=== PATIENT | female | born 1965 | race Caucasian/White ===

== ENCOUNTER 2023-08-01 12:14 | Inpatient (IN) | payer BC ==
--- OUTSIDE RECORDS SUMMARY | 2023-08-01 12:17 | XMS REPORT | Continuity of Care Document ---
Author Name Unknown Address [address] [facility] [place] [address] [facility] thconnect Address [address] [facility] [place] [address] Care Team Providers Care Air And Water Filler Name Role Phone DENIZ SUAZO Attending Clinician Unavailable SUE HYMAN Attending Clinician Unavailable SMITH FOWLER Attending Clinician Unavailable [id number] Attending Clinician Unavailable Payers Payer Name Policy Type Policy Number Effective Date Expirati on Date Source BCBS 2 [id number] 2022 00:00:00 Problems Condition Name Condition Details Condition Category Status Onset Date Resolution Date Last Treatment Date Treating Clinician Comments Source Insomnia Insomnia Disease Active 05-22 00:00: 00 Irma Moscosoybold - Externa l Chronic pain of both knees Chronic pain of both knees Disease Active 05-22 00:00: 00 Irma Moscosoybold - Externa l Primary hypertensi on Primary hypertensi on Disease Active 05-22 00:00: 00 Irma Seybold - Externa l Recurrent major depressive disorder, in partial remission Recurrent major depressive disorder, in partial remission Disease Active 05-22 00:00: 00 Iram Seybold - Externa l Prediabete s Prediabete s Disease Active 05-22 00:00: 00 Irma Seybold - Externa l Social History Social Habit Start Date Stop Date Quantity Comments Source Gender identity Davina Hastings - External Sexual orientation K hattie Hastings - External Alcohol intake 2022-11-06 00:00:00 2022-11-06 00:00:00 Ex-drinker (finding) Irma Hastings - [place] History of Social function 2022-05-22 00:00:00 2022-05-22 00:00:00 Irma Hector Sex Ass[birth year] At 1965 00:00:00 1965 00:[birth year]:00 Irma Hector Smoking Status Start Date Stop Date Source Never smoked tobacco Irma Hector Medications Ordered Medication Name Filled Medication Name Start Date Stop Date Current Medication? Ordering Clinician Indication Dosage Frequency Signature (SIG) Comments Components Source Omeprazole 20 MG oral Delayed Release Capsule 11-06 08:12: 11-06 00:00 :00 No 20mg Take 1 capsule (20 mg total) by mouth daily Irma mcknight Celecoxib (CeleBREX) 200 MG oral Capsule 11-06 00:00: 00 Yes [id number] 200mg Take 1 capsule (200 mg total) by mouth 2 times daily Irma mcknight Pantoprazol e Sodium 40 MG oral Tablet Delayed Response 11-06 00:00: 00 Yes [id number] 40mg Take 1 tablet (40 mg total) by mouth daily Irma mcknight Diethylprop ion HCl CR 75 MG oral TABLET SR 24 HR 11-06 00:00: 00 Yes [id number] 1{tbl} Take 1 tablet by mouth every morning Irma mcknight Magnesium ([employer] Triple Magnesium Complex) 400 MG oral Capsule 11-06 00:00: 00 Yes [id number] 1{tbl} QD Take 1 tablet by mouth daily as needed Irma mcknight Meloxicam 15 MG oral Tablet 11-04 00:00: 00 11-06 00:00 :00 No TAKE 1 TABLET DAILY Irma mcknight Propranolol HCl 10 MG oral Tablet 10-21 00:00: 00 Yes [id number] TAKE 1 TABLET BY MOUTH THREE TIMES A DAY Irma mcknight Diethylprop ion HCl CR 75 MG oral TABLET SR 24 HR -04 00:00: 00 11-06 00:00 :00 No [id number] 1{tbl} Take 1 tablet by mouth every morning Irma mcknight Ozempic, 2 MG/DOSE, subcutaneou s 09-11 00:00: 00 11-06 00:00 :00 No Irma mcknight Omeprazole 20 MG oral Delayed Release Capsule 09-04 12:55: 07 Yes 20mg Take 1 capsule (20 mg total) by mouth daily Irma mcknight Semaglutide -Weight Management (Wegovy) 1.7 MG/0.75ML subcutaneou s Solution Auto-inject or 09-04 00:00: 00 Yes [id number] 1.7mg Inject 1.7 mg into the skin once a week Irma mcknight Semaglutide -Weight Management (Wegovy) 1.7 MG/0.75ML subcutaneou s Solution Auto-inject or 09-04 00:00: 00 Yes [id number] 1.7mg Inject 1.7 mg into the skin once a week Irma mcknight Propranolol HCl 10 MG oral Tablet 09-04 00:00: 00 Yes [id number] 10mg Take 1 tablet (10 mg total) by mouth 3 times daily Irma mcknight Bupropion HCL XL 150 MG OR TB24 08-18 00:00: 00 Yes [id number] 150mg Take 1 tablet (150 mg total) by mouth daily Irma mcknight Trazodone HCl 50 MG oral Tablet 08-18 00:00: 00 Yes [id number] 50mg Take 1 tablet (50 mg total) by mouth nightly Irma mcknight Ondansetron (ZOFRAN) 4 MG oral TABLET DISPERSIBLE 08-18 00:00: 00 Yes [id number] 4mg Q.[id number] 3D Take 1 tablet (4 mg total) by mouth every 8 hours as needed for nausea Irma mcknight Bupropion HCL XL 150 MG OR TB24 08-18 00:00: 00 Yes [id number] 150mg Take 1 tablet (150 mg total) by mouth daily Irma mcknight Trazodone HCl 50 MG oral Tablet 08-18 00:00: 00 Yes [id number] 50mg Take 1 tablet (50 mg total) by mouth nightly Irma mcknight Ondansetron (ZOFRAN) 4 MG oral TABLET DISPERSIBLE 08-18 00:00: 00 Yes [id number] 4mg Q.[id number] 3D Take 1 tablet (4 mg total) by mouth every 8 hours as needed for nausea Irma mcknight OZEMPIC (1 mg/dose) 4 mg/3 mL SQ Solution Pen-Injecto r 08-18 00:00: 00 09-04 00:00 :00 No [id number] 1mg Inject 1 mg into the skin once a week Irma mcknight Semaglutide (1 mg/dose) 2 mg/1.5 mL SQ Solution Pen-Injecto r 07-30 00:00: 00 09-04 00:00 :00 No [id number] 1mg Inject 1 mg into the skin once a week Irma mcknight Omeprazole 20 MG oral Delayed Release Capsule 06-19 10:20: 13 Yes 20mg Take 20 mg by mouth daily Irma mcknight Semaglutide (0.25 or 0.5 mg/dose) 2 mg/1.5 mL SQ Solution Pen-Injecto r 06-19 00:00: 00 Yes [id number] .5mg Inject 0.5 mg into the skin once a week Irma mcknight Bupropion HCL XL 150 MG OR TB24 2- 00:00: 00 Yes [id number] 150mg Take 1 tablet (150 mg total) by mouth daily Irma mcknight Trazodone HCl 50 MG oral Tablet 2- 00:00: 00 Yes [id number] 50mg Take 1 tablet (50 mg total) by mouth nightly Irma mcknight Bupropion HCL SR 100 MG OR TB12 2-03 00:00: 00 06-19 00:00 :00 No [id number] 100mg Take 1 tablet (100 mg total) by mouth daily Irma mcknight Meloxicam 15 MG oral Tablet -18 00:00: 00 Yes 15mg Take 1 tablet (15 mg total) by mouth daily Irma mcknight Meloxicam 15 MG oral Tablet -18 00:00: 00 Yes 15mg Take 1 tablet (15 mg total) by mouth daily Irma mcknight Meloxicam 15 MG oral Tablet 18 00:00: 00 11-04 00:00 :00 No 15mg Take 1 tablet (15 mg total) by mouth daily Irma mcknight Nitrofurant oin Monohyd Macro (Macrobid) 100 MG oral Capsule 05-23 00:00: 00 06-19 00:00 :00 No [id number] 100mg Take 1 capsule (100 mg total) by mouth 2 times daily Irma mcknight Omeprazole 20 MG oral Delayed Release Capsule 05-22 09:55: 45 Yes 20mg Take 20 mg by mouth daily Irma mcknight Semaglutide (0.25 or 0.5 mg/dose) 2 mg/1.5 mL SQ Solution Pen-Injecto r 05-22 00:00: 00 Yes [id number] .25mg Inject 0.25 mg into the skin once a week Irma mcknight Bupropion HCL SR 100 MG OR TB12 -12 00:00: 00 Yes [id number] 100mg Take 1 tablet (100 mg total) by mouth 2 times daily Irma mcknight Trazodone HCl 50 MG oral Tablet 05-22 00:00: 00 Yes [id number] 50mg Take 1 tablet (50 mg total) by mouth nightly Irma mcknight Semaglutide (0.25 or 0.5 mg/dose) 2 mg/1.5 mL SQ Solution Pen-Injecto r 05-22 00:00: 00 06-19 00:00 :00 No [id number] .25mg Inject 0.25 mg into the skin once a week Irma mcknight Lisinopril 40 MG oral Tablet 2021-05 00:00: 00 Yes 40mg Take 1 tablet (40 mg total) by mouth daily Irma mcknight Lisinopril 40 MG oral Tablet 2021-05 00:00: 00 Yes 40mg Take 40 mg by mouth daily Irma mcknight Lisinopril 40 MG oral Tablet 2021-05 00:00: 00 Yes 40mg Take 40 mg by mouth daily Irma mcknight Lisinopril 40 MG oral Tablet 2021-05 00:00: 00 Yes 40mg Take 1 tablet (40 mg total) by mouth daily Irma mcknight Amitriptyli ne HCl 10 MG oral Tablet 2021-05 00:00: 00 05-22 00:00 :00 No QD nightly as needed 1-3 tablets daily Irma mcknight Amlodipine Besylate 10 MG oral Tablet 2021-05 00:00: 00 Yes 10mg Take 1 tablet (10 mg total) by mouth daily Irma mcknight busPIRone HCl 15 MG oral Tablet 2021-05 00:00: 00 Yes 15mg Take 1 tablet (15 mg total) by mouth 4 times daily Irma mcknight Amlodipine Besylate 10 MG oral Tablet 2021-05 00:00: 00 Yes 10mg Take 10 mg by mouth daily Irma mcknight busPIRone HCl 15 MG oral Tablet 2021-05 00:00: 00 Yes 15mg Take 15 mg by mouth 4 times daily Irma mcknight Amlodipine Besylate 10 MG oral Tablet 2021-05 00:00: 00 Yes 10mg Take 10 mg by mouth daily Irma mcknight busPIRone HCl 15 MG oral Tablet 2021-05 00:00: 00 Yes 15mg Take 15 mg by mouth 4 times daily Irma mcknight Amlodipine Besylate 10 MG oral Tablet 2021-05 00:00: 00 Yes 10mg Take 1 tablet (10 mg total) by mouth daily Irma mcknight busPIRone HCl 15 MG oral Tablet 2021-05 00:00: 00 Yes 15mg Take 1 tablet (15 mg total) by mouth 4 times daily Irma mcknight Duloxetine HCl [address] Particles 2021-05 00:00: 00 Yes 60mg Take 1 capsule (60 mg total) by mouth daily Irma mcknight hydroCHLORO thiazide 12.5 MG oral Tablet 2021-05 00:00: 00 Yes 12.5mg Take 1 tablet (12.5 mg total) by mouth daily Irma mcknight Duloxetine HCl [address] Particles 2021-05 00:00: 00 Yes 60mg Take 60 mg by mouth daily Irma mcknight hydroCHLORO thiazide 12.5 MG oral Tablet 2021-05 00:00: 00 Yes 12.5mg Take 12.5 mg by mouth daily Irma mcknight Duloxetine HCl [address] Particles 2021-05 00:00: 00 Yes 60mg Take 60 mg by mouth daily Irma mcknight hydroCHLORO thiazide 12.5 MG oral Tablet 2021-05 00:00: 00 Yes 12.5mg Take 12.5 mg by mouth daily Irma mcknight Duloxetine HCl [address] Particles 2021-05 00:00: 00 Yes 60mg Take 1 capsule (60 mg total) by mouth daily Irma mcknight hydroCHLORO thiazide 12.5 MG oral Tablet 2021-05 00:00: 00 Yes 12.5mg Take 1 tablet (12.5 mg total) by mouth daily Irma mcknight Meloxicam 15 MG oral Tablet 2021-05 0 00:00: 00 Yes 15mg Take 15 mg by mouth daily Irma mcknight Vital Signs Vital Name Observation Time Observation Value Comments S ource Systolic blood pressure 2022-11-06 12:47:00 108 mm[Hg] Irma Seybo ld - External Diastolic blood pressure 2022-11-06 12:47:00 80 mm[Hg] Irma Seybo ld - External Heart rate 2022-11-06 12:47:00 94 /min Kelse y Seybold - External Body temperature 2022-11-06 12:47:00 36.33 Katina Irma Seybold - External Respiratory rate 2022-11-06 12:47:00 14 /min Irma Seybold - External Body height 2022-11-06 12:47:00 165.1 cm Davina ey Seybold - External Body weight 2022-11-06 12:47:00 138.801 kg Davina ey Seybold - External BMI 2022-11-06 12:47:00 50.92 kg/m2 Davina ey Seybold - External Systolic blood pressure 2022-09-04 17:54:00 115 mm[Hg] Irma Seybo ld - External Diastolic blood pressure 2022-09-04 17:54:00 81 mm[Hg] Irma Seybo ld - External Heart rate 2022-09-04 17:54:00 103 /min Kelse y Seybold - External Body temperature 2022-09-04 17:54:00 36.89 Katina Irma Seybold - External Respiratory rate 2022-09-04 17:54:00 14 /min Irma Seybold - External Body height 2022-09-04 17:54:00 165.1 cm Davina ey Seybold - External Body weight 2022-09-04 17:54:00 136.986 kg Davina ey Seybold - External BMI 2022-09-04 17:54:00 50.26 kg/m2 Davina ey Seybold - External Oxygen saturation in Arterial blood by Pulse oximetry 2022-09-04 17:54:00 99 /min Irma Seybo ld - External Systolic blood pressure 2022-06-19 16:17:00 120 mm[Hg] Irma Seybo ld - External Diastolic blood pressure 2022-06-19 16:17:00 80 mm[Hg] Irma Seybo ld - External Heart rate 2022-06-19 16:17:00 110 /min Kelse y Seybold - External Body temperature 2022-06-19 16:17:00 36.28 Katina Irma Seybold - External Respiratory rate 2022-06-19 16:17:00 15 /min Irma Seybold - External Body height 2022-06-19 16:17:00 165.1 cm Davina ey Seybold - External Body weight 2022-06-19 16:17:00 140.161 kg Davina ey Seybold - External BMI 2022-06-19 16:17:00 51.42 kg/m2 Davina ey Seybold - External Systolic blood pressure 2022-05-22 15:49:00 104 mm[Hg] Irma Seybo ld - External Diastolic blood pressure 2022-05-22 15:49:00 70 mm[Hg] Irma Seybo ld - External Heart rate 2022-05-22 15:49:00 124 /min Kelse y Seybold - External Body temperature 2022-05-22 15:49:00 36.28 Katina Irma Seybold - External Respiratory rate 2022-05-22 15:49:00 15 /min Irma Seybold - External Body height 2022-05-22 15:49:00 165.1 cm Davina ey Seybold - External Body weight 2022-05-22 15:49:00 141.522 kg Davina ey Seybold - External BMI 2022-05-22 15:49:00 51.92 kg/m2 Davina ey Seybold - External Encounters Start Date/Time End Date/Time Encounter Type Admission Type Attending [facility] Care Department Encounter ID Source 2023-07-27 00:00:00 2023-07-27 00:00:00 Outpatient DENIZ SUAZO [id number] Irma Hastings 2023-05-31 00:00:00 2023-05-31 00:00:00 Outpatient DENIZ SUAZO [id number] Irma Hastings 2023-05-15 00:00:00 2023-05-15 00:00:00 Outpatient DENIZ SUAZO [id number] Irma Hastings 2023-05-01 00:00:00 2023-05-01 00:00:00 Outpatient HUNDL, DENIZ WOLF [id number] [facility] 2023-04-30 00:00:00 2023-04-30 00:00:00 Outpatient HUNDL, DENIZ WOLF [id number] [facility] 2023-04-22 00:00:00 2023-04-22 00:00:00 [facility] HUNDL, DEN[facility] WOLF [id number] [facility]14 00:00:00 2023-04-14 00:00:00 Outpatient HUNDL, DENIZ WOLF [id number] [facility] 2023-04-13 00:00:00 2023-04-13 00:00:00 Outpatient HUNDL, DENIZ WOLF [id number] [facility] 2023-03-20 00:00:00 2023-03-20 00:00:00 Outpatient HUNDL, DENIZ WOLF [id number] [facility] 2023-03-05 00:00:00 2023-03-05 00:00:00 Outpatient HUNDL, DENIZ WOLF [id number] [facility] 2023-03-03 00:00:00 2023-03-03 00:00:00 Outpatient HUNDL, DENIZ WOLF [id number] [facility] 2023-02-23 00:00:00 2023-02-23 00:00:00 Outpatient HUNDL, DENIZ WOLF [id number] [facility] 2023-02-05 00:00:00 2023-02-05 00:00:00 Outpatient HUNDL, DENIZ WOLF [id number] [facility] 2023-02-04 14:16:02 2023-02-04 14:16:02 Outpatient [facility] [id number] [place] 2023-02-04 00:00:00 2023-02-04 00:00:00 Outpatient HUNDL, DENIZ WOLF [id number] [facility] 2023-02-03 00:00:00 2023-02-03 00:00:00 Outpatient HUNDL, DENIZ WOLF [id number] [facility] 2023-01-23 00:00:00 2023-01-23 00:00:00 Outpatient DENIZ SUAZO IRMA WOLF [id number] [facility] 2023-01-22 13:45:11 2023-01-22 13:45:11 Outpatient SFA SFA [id number] [place] 2023-01-08 14:40:40 2023-01-08 14:40:40 Outpatient SFA SFA [id number] [facility] 2023-01-01 13:15:36 2023-01-01 13:15:36 Outpatient SFA SFA [id number] [facility] 2022-12-30 15:30:00 2022-12-30 15:30:00 Outpatient SUE HYMAN IRMA WOLF [id number] [facility] 2022-12-26 00:00:00 2022-12-26 00:00:00 Outpatient DENIZ SUAZO IRMA WOLF [id number] [facility] 2022-12-18 00:00:00 2022-12-18 00:00:00 Outpatient HUNDRoseline DENIZ WOLF [id number] [facility] 2022-12-17 00:00:00 2022-12-17 00:00:00 Outpatient GABRIELE DENIZ IRMA WOLF [id number] [facility] 2022-12-12 00:00:00 2022-12-12 00:00:00 Outpatient HUNDRoseline DENIZ WOLF [id number] [facility] 2022-12-09 00:00:00 2022-12-09 00:00:00 Outpatient PREZABryan SMITH WOLF [id number] Irma Seybold 2022-12-02 00:00:00 2022-12-02 00:00:00 Outpatient PREZAS SMITH WOLF [id number] Irma Seybold 2022-11-30 00:00:00 2022-11-30 00:00:00 Outpatient HUNDL DENIZ WOLF [id number] Irma Seybold 2022-11-28 00:00:00 2022-11-28 00:00:00 Outpatient HUNDL, DENIZ WOLF [id number] [facility] 2022-11-14 00:00:00 2022-11-14 00:00:00 Outpatient HUNDL, DENIZ WOLF [id number] Irma Seybold 2022-11-12 00:00:00 2022-11-12 00:00:00 Outpatient HUNDL, DENIZ WOLF [id number] [facility] 2022-11-12 00:00:00 2022-11-12 00:00:00 Outpatient HUNDL, DENIZ WOLF [id number] [facility] 2022-11-06 08:00:00 2022-11-06 08:00:00 Outpatient HUNDL, DENIZ WOLF [id number] [facility] 2022-11-02 00:00:00 2022-11-02 00:00:00 Outpatient HUNDL, DENIZ WOLF [id number] [facility] 2022-10-20 00:00:00 2022-10-20 00:00:00 Outpatient HUNDL, DENIZ WOLF [id number] [facility] 2022-09-26 00:00:00 2022-09-26 00:00:00 Outpatient HUNDL, DENIZ WOLF [id number] [facility] 2022-09-16 00:00:00 2022-09-16 00:00:00 Outpatient HUNDL, DENIZ WOLF [id number] [facility] 2022-09-12 00:00:00 2022-09-12 00:00:00 Outpatient HUNDL, DENIZ WOLF [id number] Irma Seybold 2022-09-11 00:00:00 2022-09-11 00:00:00 Outpatient HUNDL, DENIZ WOLF [id number] Irma Seybold 2022-09-04 13:00:00 2022-09-04 13:00:00 Outpatient HUNDL, DENIZ WOLF [id number] Irma Seybold 2022-08-18 00:00:00 2022-08-18 00:00:00 Outpatient HUNDL, DENIZ WOLF [id number] [facility] 2022-08-15 00:00:00 2022-08-15 00:00:00 Outpatient HUNDL, DENIZ WOLF [id number] [facility] 2022-08-14 13:00:00 2022-08-14 13:00:00 Outpatient HUNDL, DENIZ WOLF [id number] [facility] 2022-07-30 00:00:00 2022-07-30 00:00:00 Outpatient HUNDL, DENIZ WOLF [id number] [facility] 2022-07-17 00:00:00 2022-07-17 00:00:00 Outpatient HUNDL, DENIZ WOLF [id number] [facility] 2022-07-16 00:00:00 2022-07-16 00:00:00 Outpatient HUNDL, DENIZ WOLF [id number] [facility] 2022-06-29 00:00:00 2022-06-29 00:00:00 Outpatient HUNDL, DENIZ WOLF [id number] [facility] 2022-06-23 00:00:00 2022-06-23 00:00:00 Outpatient HUNDL, DENIZ WOLF [id number] [facility] 2022-06-23 00:00:00 2022-06-23 00:00:00 Outpatient HUNDL, DENIZ WOLF [id number] [facility] 2022-06-20 00:00:00 2022-06-20 00:00:00 Outpatient HUNDL, DENIZ WOLF [id number] [facility] 2022-06-19 11:15:00 2022-06-19 11:15:00 Outpatient LAB90 IRMA WOLF [id number] [facility] 2022-06-19 10:30:00 2022-06-19 10:30:00 Outpatient HUNDL, DENIZ WOLF [id number] Irma Seyble[facility]ne 2022-06-13 00:00:00 2022-06-13 00:00:00 Outpatient HUNDL, DENIZ WOLF [id number] Irma Hastings 2022-05-27 00:00:00 2022-05-27 00:00:00 Outpatient DENIZ SUAZO [id number] Irma Hastings 2022-05-26 00:00:00 2022-05-26 00:00:00 Outpatient DENIZ SUAZO [id number] Irma Hastings 2022-05-23 00:00:00 2022-05-23 00:00:00 Outpatient DENIZ SUAZO [id number] Irma Hastings 2022-05-23 00:00:00 2022-05-23 00:00:00 Outpatient DENIZ SUAZO [id number] Irma Hastings 2022-05-22 10:45:00 2022-05-22 10:45:00 Outpatient LAB90 IRMA WOLF [id number] Irma Hastings 2022-05-22 10:00:00 2022-05-22 10:00:00 Outpatient DENIZ SUAZO [id number] Irma Hastings Results Test Description Test Time Test Comments Results Result Co mments Source VAG[facility] PATHOGENS DNA [id number] 15:09:59* Test Item Value Reference Range Interpretation Comme nts ZEINAB SPECIES (test code = 77505) NEGATIVE NEGATIVE G. VAGINALIS (test code = 81689) NEGATIVE NEGATIVE T. VAGINALIS (test code = 67601) NEGATIVE NEGATIVE Note: The [facility] VPIII Microbial Identification Testis a DNA probe test intended for use in the detectionand identification of Zeinab species, Gardnerellavaginalis and Trichomonas vaginalis nucleic acid. UNLESS OTHERWISE INDICATED, ALL TESTING PERFORMED AT [facility] [address] [place] [address] CASING IN LINE SETTER: MADI LEE M.D. CLIA NUMBER [id number] [facility] [place]. [id number] PAP TEST, THINPREP, [id number] 14:11:20* Test Item Value Reference Range Interpretation Comme nts SOURCE: (test code = 8001) Cervical SLIDES: (test code = 8011) 1 LMP: (test code = 8021) NOT GIVEN SPECIMEN ADEQUACY: (test code = 20980) (NOTE) Satisfactory for evaluation. Endocervical cells/transformation zone component present. INTERPRETATION: (test code = 44907) NILM/NO EPITH. ABNORMALITY;SEE BELOW --- - NEGATIVE FOR INTRAEPITHELIAL LESION OR MALIGNANCY (NILM) ---- INSPECTION AND TESTING SUPERVISOR : (test code = 8101) ISRRAEL Zhao (ASCP) LOCATION: (test code = 81836) (NOTE) Specimens proces sed and interpreted at [facility], [address] [place] [address], , CLIA: [id number] CPT: (test code = 8140) (NOTE) 37958 UNLESS OTH ERWISE INDICATED, COMPUTER AIDED AND INSPECTION AND TESTING SUPERVISOR SCREENING PERFORMED. The Pap test is a screening test with an inherent, but low probability of error. Your patient should be reminded to consult you immediately if she experiences any suspicious signs or symptoms, regardless of her Pap test result. An alternate report format containing images or consolidated prior Pap history is available as applicable. HPV HIGH RISK WITH GENOTYPE, [id number] 13:47:13* Test Item Value Reference Range Interpretation Comme nts HPV HIGH RISK INTERP (test code = 70756) NEGATIVE NEGATIVE HPV 16 (test code = 00476) NEGATIVE HPV 18 (test code = 16161) NEGATIVE HPV, HR, OTHER GENOTYPES (test code = 43481) NEGATIVE Testing methodol ogy is real-time PCR utilizing hydrolysis probes with the ideelias 4800 system. The test individually detects genotypes 16 and 18, as well as the other 12 high risk types (31,33,35,39,45,51,52,56 ,58,59,66,68). The expected result is negative. A negative result does not rule out the presence of HPV not included in the genotype set, a low level of infection or specimen sampling error. UNLESS OTHERWISE INDICATED, ALL TESTING PERFORMED AT [facility] [address] [place] [address] CASING IN LINE SETTER: MADI LEE M.D. [place] NUMBER [id number] [facility] [place]. [id number]
[2023-08-01 12:51] LABS: Absolute Basophils 0.1 K/uL (0-0.5); Absolute Eosinophils 0.1 K/uL (0-0.5); Absolute Lymphocytes (CBC) 1.2 K/uL (0.7-4.9); Absolute Monocytes 0.3 K/uL (0.1-1.3); Absolute Neutrophil 4.2 K/uL (1.8-8.0); Basophils % 0.9 % (0-1.3); Eosinophils % 1.4 % (0-4.4); Hematocrit 39.3 % (36.0-45.0); Hemoglobin 13.2 g/dL (12.0-15.0); MCH 28.9 pg (27.0-35.0); MCHC 33.7 g/dL (32.0-36.0); MCV 85.7 fL (80-100); MPV 8.1 fL (7.6-11.3); Monocytes % 5.9 % (3.3-12.3); Neutrophils % 71.8 % (41.7-73.7); Platelets 260 thou/uL (152-406); RBC Red Blood Cell Count 4.58 M/uL (3.86-4.86); Red Cell Distribution Width 13.7 % (12.1-15.2)
[2023-08-01 12:52] LABS: PT Prothrombin Time 19.5 SECONDS (9.5-12.5); Protime INR 1.8
--- NOTE | 2023-08-01 13:08 | RAD REPORT ---
EXAM DESCRIPTION: RAD - Chest Single View - 08/01/2023 1:01 pm CLINICAL HISTORY: COUGH COMPARISON: Chest Pa And Lat (2 Views) dated 06/15/2023 FINDINGS: Lines: None. Lungs: No evidence of edema or pneumonia. Pleural: No significant pleural effusions or pneumothorax. Cardiac: The heart size is within normal limits. Mediastinum: Within normal limits. Bones: No acute fractures. Other: None IMPRESSION: No acute cardiopulmonary disease.
[2023-08-01] MEDS ORDERED: NA CHLORIDE 0.9% 1,000 ML ONE (13:19)
[2023-08-01] MEDS ORDERED: MAGNESIUM SULFATE 1 gm IVPB 1 GM/100 ML BAG IV ONE (13:19)
[2023-08-01 13:20] LABS: Albumin 3.3 g/dL (3.4-5.0); Albumin/Globulin Ratio 0.9 (1.1-1.8); Anion Gap 8.5 mEq/L (5.0-15.0); Bilirubin Direct 0.2 mg/dL (0-0.2); Bilirubin Indirect, Calculated 0.4 mg/dL (0.2-0.8); Bilirubin Total 0.6 mg/dL (0.2-1.0); Globulin 3.7 g/dL (2.3-3.5); Magnesium 1.9 mg/dL (1.6-2.4); Potassium 3.5 mEq/L (3.5-5.1); Thyroid Stimulating Hormone 1.73 uIU/mL (0.358-3.740); Troponin High Sensitivity 11.7 pg/mL (<58.9)
--- NOTE | 2023-08-01 13:55 | EDPHYS ---
Physician Documentation [facility] Name: Serena Hines Age: 58 yrs Sex: Female : 1965 Arrival Date: 08/01/2023 Time: 12:14 Bed 2 Private MD: Korey Lantigua ED Physician Néstor Eason HPI: 07/31 13:43 This 58 yrs old Female presents to ER via Ambulatory with complaints of AFIB. armin 13:43 The patient presents with a history of irregular heart beat, heart skipping beats. armin Context: The symptoms occur at rest, with anxiety, with light activity, with strenuous activity. Onset: The symptoms/episode began/occurred 5 day(s) ago. Duration: The patient or guardian reports a single episode, that is still ongoing. Modifying factors: The symptoms are aggravated by nothing. The symptoms are alleviated by nothing. Associated signs and symptoms: The patient has no apparent associated signs or symptoms. Severity of symptoms: At their worst the symptoms were moderate in the emergency department the symptoms are unchanged. The patient has experienced similar episodes in the past, a few times. Historical: - Allergies: 12:31 No Known Allergies; hb - Home Meds: 12:31 aspirin 81 mg Oral tablet,chewable [Active]; Wellbutrin Oral [Active]; BuSpar Oral hb [Active]; duloxetine oral [Active]; amlodipine oral [Active]; Lisinopril Oral [Active]; Trazodone Oral [Active]; Metoprolol Tartrate Oral [Active]; - PMHx: 12:31 Atrial fibrillation; Anxiety; Depression; Hypertension; hb - PSHx: 12:31 section; hb - Immunization history:: Adult Immunizations up to date. - Social history:: Smoking status: Patient denies any tobacco usage or history of. ROS: 13:44 Constitutional: Negative for fever, chills, and weight loss, Eyes: Negative for injury, armin pain, redness, and discharge, ENT: Negative for injury, pain, and discharge, Neck: Negative for injury, pain, and swelling, Respiratory: Negative for shortness of breath, cough, wheezing, and pleuritic chest pain, Abdomen/GI: Negative for abdominal pain, nausea, vomiting, diarrhea, and constipation, Back: Negative for injury and pain, : Negative for injury, bleeding, discharge, and swelling, MS/Extremity: Negative for injury and deformity, Skin: Negative for injury, rash, and discoloration, Neuro: Negative for headache, weakness, numbness, tingling, and seizure, Psych: Negative for depression, anxiety, suicide ideation, homicidal ideation, and hallucinations, Allergy/Immunology: Negative for hives, rash, and allergies, Endocrine: Negative for neck swelling, polydipsia, polyuria, polyphagia, and marked weight changes, Hematologic/Lymphatic: Negative for swollen nodes, abnormal bleeding, and unusual bruising, 13:44 Cardiovascular: Positive for chest pain, palpitations, Exam: 13:44 Constitutional: This is a well developed, well nourished patient who is awake, alert, armin and in no acute distress. Head/Face: Normocephalic, atraumatic. Eyes: Pupils equal round and reactive to light, extra-ocular motions intact. Lids and lashes normal. Conjunctiva and sclera are non-icteric and not injected. Cornea within normal limits. Periorbital areas with no swelling, redness, or edema. ENT: Nares patent. No nasal discharge, no septal abnormalities noted. Tympanic membranes are normal and external auditory canals are clear. Oropharynx with no redness, swelling, or masses, exudates, or evidence of obstruction, uvula midline. Mucous membranes moist. Neck: Trachea midline, no thyromegaly or masses palpated, and no cervical lymphadenopathy. Supple, full range of motion without nuchal rigidity, or vertebral point tenderness. No Meningismus. Chest/axilla: Normal chest wall appearance and motion. Nontender with no deformity. No lesions are appreciated. Respiratory: Lungs have equal breath sounds bilaterally, clear to auscultation and percussion. No rales, rhonchi or wheezes noted. No increased work of breathing, no retractions or nasal flaring. Abdomen/GI: Soft, non-tender, with normal bowel sounds. No distension or tympany. No guarding or rebound. No evidence of tenderness throughout. Back: No spinal tenderness. No costovertebral tenderness. Full range of motion. Female : Normal external genitalia. Skin: Warm, dry with normal turgor. Normal color with no rashes, no lesions, and no evidence of cellulitis. MS/ Extremity: Pulses equal, no cyanosis. Neurovascular intact. Full, normal range of motion. Neuro: Awake and alert, GCS 15, oriented to person, place, time, and situation. Cranial nerves II-XII grossly intact. Motor strength 5/5 in all extremities. Sensory grossly intact. Cerebellar exam normal. Normal gait. Psych: Awake, alert, with orientation to person, place and time. Behavior, mood, and affect are within normal limits. 13:44 Cardiovascular: Rate: normal, actual rate is 88 bpm, Rhythm: irregularly irregular, Pulses: Pulses are 4+ in bilateral radial, brachial, femoral, popliteal, posterior tibial and and dorsalis pedis arteries.. Heart sounds: normal, Edema: is not appreciated, JVD: is not appreciated, 13:44 ECG was reviewed by the Attending Physician. Vital Signs: 12:29 BP 134 / 90; Pulse 88; Resp 21; Temp 98.2(O); Pulse Ox 99% on R/A; Weight 136.08 kg; hb Height 5 ft. 5 in. ; Pain 0/10; 13:50 BP 119 / 71; Pulse 73; Resp 16; Pulse Ox 99% on R/A; Pain 0/10; iw 12:29 Body Mass Index 49.92 (136.08 kg, 165.1 cm) hb 12:29 Pain Scale: Adult hb 13:50 Pain Scale: Adult iw MDM: 12:18 Patient medically screened. armin 13:46 [place] Risk Score: Total Score = 0. Differential diagnosis: arrythmia, dehydration. Data armin reviewed: vital signs, nurses notes, lab test result(s), EKG, radiologic studies, plain films. Consideration of Admission/Observation Patient was admitted/placed on observation. Escalation of care including admission/observation considered. I considered the following discharge prescriptions or medication management in the emergency department Medications were administered in the Emergency Department. See MAR. Independent interpretation of the following test(s) in the Emergency Department EKG: See my EKG interpretation above. Test considered but Not performed: Ultrasound no 2 d echo. Historians other than the Patient: patient well informed. Care significantly affected by the following chronic conditions: Hypertension, Obesity, anxiety, depression. 07/31 12:21 Order name: Basic Metabolic Panel; Complete Time: 13:42 armin 07/31 12:21 Order name: CBC with Diff; Complete Time: :42 [facility] 07/31 12:21 Order name: LFT's; Complete Time: 13:42 [facility] 07/31 12:21 Order name: Magnesium; Complete Time: 13:42 [facility] 07/31 12:21 Order name: NT PRO-BNP; Complete Time: 13:42 07/31 12:21 Order name: PT-INR; Complete Time: 13:42 07/31 12:21 Order name: Troponin HS; Complete Time: 13:42 07/31 12:21 Order name: TSH; Complete Time: 13:42 [facility] 07/31 12:21 Order name: Urinalysis w/ reflexes 07/31 12:21 Order name: XRAY Chest (1 view); Complete Time: 13:42 [facility] 07/31 12:21 Order name: EKG; Complete Time: 12:21 [facility] 07/31 14:11 Order name: CONS Physician Consult [facility] 07/31 12:21 Order name: Cardiac monitoring; Complete Time: 12:37 07/31 12:21 Order name: EKG - Nurse/Tech; Complete Time: 12:37 [facility] 07/31 12:21 Order name: IV Saline Lock; Complete Time: 12:41 07/31 12:21 Order name: Labs collected and sent; Complete Time: 12:41 [facility] 07/31 12:21 Order name: O2 Per Protocol; Complete Time: 12:37 [facility] 07/31 12:21 Order name: O2 Sat Monitoring; Complete Time: 12:37 armin EC:44 Rate is 81 beats/min. Rhythm is irregularly irregular. QRS [place] is Normal. [place] interval armin is normal. QRS interval is normal. QT interval is normal. No Q waves. T waves are Normal. No ST changes noted. Clinical impression: Atrial Fibrillation and No evidence of ischemia. Interpreted by me. Reviewed by me. Administered Medications: 13:41 Drug: NS 0.9% IV 500 ml IV at bolus once Route: IV; Rate: bolus; Site: left forearm; iw 14:15 Follow up: IV Status: Completed infusion iw 13:41 Drug: NS 0.9% IV 1000 ml IV at 125 ml/hr continuous Route: IV; Rate: 125 ml/hr; Site: iw left forearm; 15:00 Follow up: IV Status: IV converted to saline lock iw 13:41 Drug: Magnesium Sulfate IVPB 1 grams IVPB once over 1 hrs Route: IVPB; Infused Over: 1 iw hrs; Site: left forearm; 14:40 Follow up: IV Status: Completed infusion iw 14:31 Drug: Sotalol PO 80 mg PO once Route: PO; iw 15:00 Follow up: Response: No adverse reaction iw Disposition Summary: 08/01/23 13:54 Hospitalization Ordered Notes: Hospitalization Status: Inpatient Admission armin Provider: Atiya Cortes cha Location: Telemetry/MedSurg (Inpatient) armin Condition: Fair armin Problem: new armin Symptoms: have improved armin Bed/Room Type: Standard armin Room Assignment: 208(08/01/23 14:25) eb Diagnosis - Persistent atrial fibrillation armin - Unspecified atrial flutter 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
--- NOTE | 2023-08-01 13:55 | ER ---
Nurse's Notes [facility] Name: Serena Hines Age: 58 yrs Sex: Female : 1965 Arrival Date: 08/01/2023 Time: 12:14 Bed 2 Private MD: Korey Lantigua Diagnosis: Persistent atrial fibrillation;Unspecified atrial flutter;terminal carman (current) use of anticoagulants Presentation: 07/31 12:29 Chief complaint: Saw Dr. Herrera on and told to come to ED for cardioversion hb but had to work so she came today. Reports palpitations x years, hx of afib. Started on Xarelto . Coronavirus screen: At this time, the client does not indicate any symptoms associated with coronavirus-19. Ebola Screen: No symptoms or risks identified at this time. Initial Sepsis Screen: Does the patient meet any 2 criteria? No. Patient's initial sepsis screen is negative. Does the patient have a suspected source of infection? No. Patient's initial sepsis screen is negative. Risk Assessment: Do you want to hurt yourself or someone else? Patient reports no desire to harm self or others. Onset of symptoms was August 01, 2023. 12:29 Method Of Arrival: Ambulatory hb 12:29 Acuity: CARLEEN 3 hb Triage Assessment: 12:31 General: Appears in no apparent distress. Behavior is calm, cooperative. Pain: Denies hb pain. Neuro: Level of Consciousness is awake, alert, obeys commands, Oriented to person, place, time, situation. Cardiovascular: Reports palpitations, Patient's skin is warm and dry. Rhythm is atrial fibrillation. Respiratory: Respiratory effort is even, unlabored, Respiratory pattern is regular, symmetrical. Historical: - Allergies: 12:31 No Known Allergies; hb - Home Meds: 12:31 aspirin 81 mg Oral tablet,chewable [Active]; Wellbutrin Oral [Active]; BuSpar Oral hb [Active]; duloxetine oral [Active]; amlodipine oral [Active]; Lisinopril Oral [Active]; Trazodone Oral [Active]; Metoprolol Tartrate Oral [Active]; - PMHx: 12:31 Atrial fibrillation; Anxiety; Depression; Hypertension; hb - PSHx: 12:31 section; hb - Immunization history:: Adult Immunizations up to date. - Social history:: Smoking status: Patient denies any tobacco usage or history of. Screenin:36 [facility] ED Fall Risk Assessment (Adult) History of falling in the last 3 months, hb including since admission No falls in past 3 months (0 pts) Confusion or Disorientation No (0 pts) Intoxicated or Sedated No (0 pts) Impaired Gait No (0 pts) Mobility Assist Device Used No (0 pt) Altered Elimination No (0 pt) Score/Fall Risk Level 0 - 2 = Low Risk Oriented to surroundings, Maintained a safe environment, Educated pt \T\ family on fall prevention, incl call for assistance when getting out of bed. Abuse screen: Denies threats or abuse. Denies injuries from another. Nutritional screening: No deficits noted. Tuberculosis screening: No symptoms or risk factors identified. Assessment: 12:43 General: Appears in no apparent distress. Behavior is calm, cooperative. Pain: Denies iw pain. Neuro: Mathew Agitation-Sedation Scale (RASS): Level of Consciousness is awake, alert, obeys commands, Oriented to person, place, time, situation, Moves all extremities. Full function. Cardiovascular: Patient's skin is warm and dry. Rhythm is atrial fibrillation. Respiratory: Respiratory effort is even, unlabored, Respiratory pattern is regular, symmetrical. Derm: Skin is intact, is healthy with good turgor. Musculoskeletal: Range of motion: intact in all extremities. Vital Signs: 12:29 BP 134 / 90; Pulse 88; Resp 21; Temp 98.2(O); Pulse Ox 99% on R/A; Weight 136.08 kg; hb Height 5 ft. 5 in. ; Pain 0/10; 13:50 BP 119 / 71; Pulse 73; Resp 16; Pulse Ox 99% on R/A; Pain 0/10; iw 12:29 Body Mass Index 49.92 (136.08 kg, 165.1 cm) hb 12:29 Pain Scale: Adult hb 13:50 Pain Scale: Adult iw ED Course: 12:14 Patient arrived in ED. mr 12:15 Korey Lantigua DO is Private Physician. mr 12:18 Néstor Eason MD is Attending Physician. armin 12:23 EKG done, by ED staff, reviewed by Néstor Eason MD. hb 12:23 Patient maintains SpO2 saturation greater than 95% on room air. hb 12:31 Triage completed. hb 12:35 Arm band placed on. hb 12:35 Patient has correct armband on for positive identification. Placed in gown. Bed in low hb position. Call light in reach. Side rails up X 1. Provided Education on: tests, use of call light. Client placed on continuous cardiac and pulse oximetry monitoring. NIBP monitoring applied. bus monitor on. Pulse ox on. NIBP on. 12:41 Poornima Arnold, RN is Primary Nurse. iw 12:42 Initial lab(s) drawn, by me, sent to lab. Inserted saline lock: 22 gauge in left iw forearm, using aseptic technique. Blood collected. 13:03 XRAY Chest (1 view) In Process Unspecified. EDWV 13:54 Atiya Cortes MD is Hospitalizing Provider. armin Administered Medications: 13:41 Drug: NS 0.9% IV 500 ml IV at bolus once Route: IV; Rate: bolus; Site: left forearm; iw 14:15 Follow up: IV Status: Completed infusion iw 13:41 Drug: NS 0.9% IV 1000 ml IV at 125 ml/hr continuous Route: IV; Rate: 125 ml/hr; Site: iw left forearm; 15:00 Follow up: IV Status: IV converted to saline lock iw 13:41 Drug: Magnesium Sulfate IVPB 1 grams IVPB once over 1 hrs Route: IVPB; Infused Over: 1 iw hrs; Site: left forearm; 14:40 Follow up: IV Status: Completed infusion iw 14:31 Drug: Sotalol PO 80 mg PO once Route: PO; iw 15:00 Follow up: Response: No adverse reaction iw Medication: 12:43 VIS not applicable for this client. iw Outcome: 13:54 Decision to Hospitalize by Provider. armin 15:06 Patient left the ED. iw Signatures: Dispatcher [employer] EDWV Néstor Eason MD MD cha Rivera, Mary, Reg Reg mr Poornima Arnold, KATHY RN Ana Hunter RN RN hb
--- NOTE | 2023-08-01 14:04 | P.HP ---
Certification for Inpatient Patient admitted to: Inpatient With expected LOS: <2 Midnights <Thea Solorzano - Last Filed: 08/01/23 15:57> Patient History Date of Service: 08/01/23 History of Present Illness: 58-year-old female with a past medical history of atrial fibrillation presents to the emergency room with irregular heart rate. Reports associated anxiety with palpitations. Patient seen by Dr. Tran for cardiology. No reported chest pain, shortness of breath, edema. Plan to admit for A-fib RVR with cardiology to consult. BP 134 / 90; Pulse 88; Resp 21; Temp 98.2(O); Pulse Ox 99% on R/A; Weight 136.08 kg; Height 5 ft. 5 in. ; Pain 0/10; EKG s 81 beats/min. Rhythm is irregularly irregular. QRS [place] is Normal. [place] interval is normal. QRS interval is normal. QT interval is normal. No Q waves. T waves Normal. No ST changes noted. Clinical impression: Atrial Fibrillation <RashadThea - Last Filed: 08/01/23 15:57> Date of Service: 08/01/23 <Atiya Cortes - Last Filed: 08/01/23 17:13> Allergies Preservatives in certain food Allergy (Uncoded 06/15/23 10:05) Itching/Headache Home Medications: Amlodipine Besylate 10 mg PO BEDTIME 04/29/23 Buspirone HCl [Buspar] 1.5 tab PO BID 04/29/23 Duloxetine HCl 60 mg PO DAILY 04/29/23 Fexofenadine HCl [Brinda Allergy] 180 mg PO DAILY 04/29/23 Lisinopril [Zestril] 40 mg PO DAILY 04/29/23 Pantoprazole [Protonix Tab] 40 mg PO DAILY 04/29/23 Semaglutide [Wegovy] 1.7 mg SQ SEECOM 04/29/23 buPROPion HCL [Bupropion HCl] 150 mg PO DAILY 04/29/23 hydroCHLOROthiazide [Hydrochlorothiazide*] 12.5 mg PO DAILY 04/29/23 Aspirin Chewable [Aspirin Chewable*] 81 mg PO DAILY 06/15/23 Celecoxib [Celebrex] 200 mg PO BID 06/15/23 Magnesium Oxide [Mag 0X Tab] 400 mg PO DAILY 06/15/23 Metoprolol Succinate [Toprol Xl] 25 mg PO DAILY 06/15/23 Trazodone [Desyrel] 50 mg PO BEDTIME 06/15/23 Review of Systems per HPI <Thea Solorzano - Last Filed: 08/01/23 15:57> Physical Examination - Physical Exam General: Alert, In no apparent distress, Oriented x3 HEENT: Atraumatic, Normocephalic Neck: Supple, 2+ carotid pulse no bruit Respiratory: Clear to auscultation bilaterally, Normal air movement Cardiovascular: Irregular heart rate/rhythm Capillary refill: <2 Seconds Gastrointestinal: Normal bowel sounds, Soft and benign Musculoskeletal: No clubbing, No swelling Neurological: Normal speech, Normal strength at 5/5 x4 extr - Studies Laboratory Data (last 24 hrs) 08/01/23 08/01/23 08/01/23 12:38 12:38 12:38 WBC 5.90 Hgb 13.2 Hct 39.3 Plt Count 260 PT 19.5 H INR 1.80 Sodium 141 Potassium 3.5 BUN 12 Creatinine 0.75 Glucose 92 Magnesium 1.9 Total Bilirubin 0.6 AST 9 L ALT 14 Alkaline Phosphatase 117 <Thea Solorzano - Last Filed: 08/01/23 15:57> - Studies Laboratory Data (last 24 hrs) 08/01/23 08/01/23 08/01/23 12:38 12:38 12:38 WBC 5.90 Hgb 13.2 Hct 39.3 Plt Count 260 PT 19.5 H INR 1.80 Sodium 141 Potassium 3.5 BUN 12 Creatinine 0.75 Glucose 92 Magnesium 1.9 Total Bilirubin 0.6 AST 9 L ALT 14 Alkaline Phosphatase 117 <Atiya Cortes C - Last Filed: 08/01/23 17:13> Assessment and Plan - Plan Assessment plan A-fib RVR Chronic anticoagulation on Xarelto Cardiology consult, telemetry, Start sotalol, trend liver enzymes, IV magnesium given in the emergency room x 2 L of normal saline, Full code Diet cardiac DVT Xarelto Disposition Home Discharge Plan: Home - Advance Directives Does patient have a Living Will: No Does patient have a Durable POA for Healthcare: No - Code Status/Comfort Care Code Status: Full Code Critical Care: No Time Spent Managing Pts Care (In Minutes): 55 <Thea Solorzano - Last Filed: 08/01/23 15:57> - Plan Pt seen and examined. I agree with the note by the ADVERTISING STRATEGIST. Pt is 58 yo female with past medical history of A. fib, Anxiety, Htn, and depression who presents with A. fib. Pt reports irregular heart beat and heart skipping beats that occurs at at rest, with anxiety, light activity, and strenuous activity. Her PCP advised her to come to the ER in order to get sotalol 80mg po BID before cardioversion on Thursday. ER physician consulted Cardiology. On admission, lab studies show wbc 5.9, hgb 13.2, K 3.5, Cr 0.7, troponin 11.7 and BNP 1104. At bedside, pt is in NAD. A/P: A. fib: Will continue telemetry, sotalol, xarelto. Cardiology len do SHAYY cardioversion on Thursday Hx of gall bladder dz: Pt is waiting for the A. fib to resolve before doing lap chol. Elevated BNP: BNP is 1104. She is morbidly obese. Will f/u Echo Anxiety/Depression: prn ativan Obesity; Pt was advised to lose weight. Htn: Continue sotalol. Code: full <Atiya Cortes - Last Filed: 08/01/23 17:13>
[2023-08-01] MEDS ORDERED: SOTALOL HCL 80 MG TAB ONE (14:07)
[2023-08-01 14:38] LABS: Sqamous Epithelial <5 /HPF (None Seen); Urine Bacteria None Seen /HPF (<20); Urine Bilirubin NEGATIVE (Negative); Urine Blood 3+ (Negative); Urine Clarity Turbid (Clear); Urine Color Light-Yellow (Yellow); Urine Culture Reflex Order REFLEXED; Urine Glucose NEGATIVE (Negative); Urine Ketones NEGATIVE (Negative); Urine Microscopic Reflex YN ORDER UMIC; Urine Mucus Slight /HPF (None Seen); Urine Nitrite NEGATIVE (Negative); Urine Protein NEGATIVE (Negative); Urine RBC >50 /HPF (None Seen); Urine Urobilinogen Normal (Normal); Urine WBC 20-50 /HPF (<5)
[2023-08-01] MEDS ORDERED: ONDANSETRON 4 MG/2 ML VIAL IV PRN (15:28)
[2023-08-01] MEDS ORDERED: GLUCAGON 1 MG/VIAL IM PRN (16:00)
[2023-08-01] MEDS ORDERED: D50W 25 GM/50 ML SYRINGE IV PRN (16:00)
[2023-08-01] MEDS ORDERED: D10W 125 ML IV PRN (16:13)
[2023-08-01] MEDS: INSULIN REGULAR (HUMAN) 100 UNIT/ML SQ SCH (16:30)
[2023-08-01 17:34] VITALS: BMI 51.4
[2023-08-01] MEDS: RIVAROXABAN 10 MG TABLET PO SCH (17:42)
[2023-08-01] MEDS: SOTALOL HCL 80 MG TAB PO SCH (18:00)
[2023-08-01 19:50] LABS: Renal Epithelial <5 /HPF (None Seen); Specific Gravity 1.006 (1.005-1.030); Sqamous Epithelial <5 /HPF (None Seen); Urine Bacteria <20 /HPF (<20); Urine Bilirubin NEGATIVE (Negative); Urine Blood 2+ (Negative); Urine Clarity Turbid (Clear); Urine Color Colorless (Yellow); Urine Culture Reflex Order REFLEXED; Urine Glucose NEGATIVE (Negative); Urine Ketones NEGATIVE (Negative); Urine Microscopic Reflex YN ORDER UMIC; Urine Nitrite NEGATIVE (Negative); Urine Protein NEGATIVE (Negative); Urine RBC >50 /HPF (None Seen); Urine Urobilinogen Normal (Normal)
[2023-08-01] MEDS: TRAZODONE 50 MG TABLET PO SCH (20:26)
[2023-08-01] MEDS: BUSPIRONE HCL 15 MG TABLET PO SCH (21:00)
[2023-08-02 07:41] LABS: Absolute Basophils 0.1 K/uL (0-0.5); Absolute Eosinophils 0.1 K/uL (0-0.5); Absolute Lymphocytes (CBC) 1.3 K/uL (0.7-4.9); Absolute Monocytes 0.4 K/uL (0.1-1.3); Absolute Neutrophil 3.6 K/uL (1.8-8.0); Eosinophils % 1.8 % (0-4.4); Hematocrit 38.3 % (36.0-45.0); Hemoglobin 12.9 g/dL (12.0-15.0); Lymphocytes % 23.4 % (15.3-44.8); MCH 28.7 pg (27.0-35.0); MCHC 33.6 g/dL (32.0-36.0); MCV 85.6 fL (80-100); MPV 7.8 fL (7.6-11.3); Monocytes % 6.9 % (3.3-12.3); Neutrophils % 66.9 % (41.7-73.7); Nucleated Red Blood Cells % 0.1 % (0-0); Platelets 266 thou/uL (152-406); RBC Red Blood Cell Count 4.48 M/uL (3.86-4.86); Red Cell Distribution Width 13.7 % (12.1-15.2)
[2023-08-02 08:05] LABS: Albumin/Globulin Ratio 0.9 (1.1-1.8); Anion Gap 6.6 mEq/L (5.0-15.0); Bilirubin Total 0.4 mg/dL (0.2-1.0); Globulin 3.3 g/dL (2.3-3.5); Potassium 3.6 mEq/L (3.5-5.1); Protein, Total 6.3 g/dL (6.4-8.2)
[2023-08-02] MEDS: BUSPIRONE HCL 5 MG TABLET PO SCH (08:18)
[2023-08-02] MEDS: PANTOPRAZOLE 40MG TABLET PO SCH (08:18)
[2023-08-02] MEDS: DULOXETINE 30 MG CAP PO SCH (08:20)
[2023-08-02] MEDS: LORATADINE 10 MG TAB PO SCH (08:21)
[2023-08-02] MEDS: ASPIRIN 81 MG CHEWABLE TABLET PO SCH (08:21)
[2023-08-02] MEDS: buPROPion HCL 100 MG TAB PO SCH (08:22)
[2023-08-02] MEDS: hydroCHLOROthiazide 12.5 MG CAP PO SCH (08:22)
[2023-08-02] MEDS: SOTALOL HCL 80 MG TAB PO SCH (08:23)
[2023-08-02] MEDS: lisinopriL 20 MG TAB PO SCH (08:23)
--- NOTE | 2023-08-02 10:38 | P.PN ---
Subjective Date of Service: 08/02/23 Pt is resting comfortably in bed. She feels great. Heart rate is 70. Cardiology will do SHAYY cardioversion tomorrow. Will keep NPO after midnight. No complaints. Review of Systems General: Unremarkable Eyes: Unremarkable ENT: Unremarkable Respiratory: Unremarkable Cardiovascular: Unremarkable Gastrointestinal: Unremarkable Genitourinary: Unremarkable Musculoskeletal: Unremarkable Integumentary: Unremarkable Neurological: Unremarkable Lymphatics: Unremarkable Physical Examination - Vital Signs Temperature: 98.1 F Blood Pressure: 118/79 Pulse: 78 Respirations: 17 Pulse Ox (%): 98 - Physical Exam General: Alert, In no apparent distress, Oriented x3 HEENT: Atraumatic, Normocephalic, PERRLA Neck: Supple, 2+ carotid pulse no bruit Respiratory: Clear to auscultation bilaterally, Normal air movement Cardiovascular: No edema, Normal pulses, Irregular heart rate/rhythm Capillary refill: <2 Seconds Gastrointestinal: Normal bowel sounds, Soft and benign, Non-distended Musculoskeletal: No clubbing, No swelling Integumentary: No rashes, No breakdown Neurological: Normal gait, Normal speech, Normal strength at 5/5 x4 extr Lymphatics: No axilla or inguinal lymphadenopathy - Studies Laboratory Data (last 24 hrs) 08/01/23 08/01/23 08/01/23 12:38 12:38 12:38 WBC 5.90 Hgb 13.2 Hct 39.3 Plt Count 260 PT 19.5 H INR 1.80 Sodium 141 Potassium 3.5 BUN 12 Creatinine 0.75 Glucose 92 Magnesium 1.9 Total Bilirubin 0.6 AST 9 L ALT 14 Alkaline Phosphatase 117 Assessment And Plan - Plan A. fib: Will continue telemetry, sotalol, xarelto. Cardiology len do SHAYY cardioversion on Thursday. Will keep pt NPO after midnight Hx of gall bladder dz: Pt is waiting for the A. fib to resolve before doing lap chol. Elevated BNP: BNP is 1104. She is morbidly obese. Will f/u Echo Anxiety/Depression: prn ativan Obesity; Pt was advised to lose weight. Htn: Continue sotalol. Code: full Dispo: Pending hospital course
--- NOTE | 2023-08-02 13:29 | P.CNS ---
Date of Consult: 08/02/23 Chief Complaint: Atrial fibrillation History of Present Illness: Patient with PMH of atrial fibrillation, has been complaining on worsening TAYLOR, no dizzy spells, no chest pain, no syncope, presented to ED and admitted for Sotalol load and possible DCCV. Allergies Preservatives in certain food Allergy (Uncoded 06/15/23 10:05) Itching/Headache Home Medications: Buspirone HCl [Buspar] 1.5 tab PO BID 04/29/23 Fexofenadine HCl [Brinda Allergy] 180 mg PO DAILY 04/29/23 Lisinopril [Zestril] 40 mg PO DAILY 04/29/23 Pantoprazole [Protonix Tab] 40 mg PO DAILY 04/29/23 RX: Amlodipine Besylate 10 mg PO BEDTIME 04/29/23 RX: Duloxetine HCl 60 mg PO DAILY 04/29/23 RX: buPROPion HCL [Bupropion HCl] 150 mg PO DAILY 04/29/23 Semaglutide [Wegovy] 1.7 mg SQ SEECOM 04/29/23 hydroCHLOROthiazide [Hydrochlorothiazide*] 12.5 mg PO DAILY 04/29/23 Aspirin Chewable [Aspirin Chewable*] 81 mg PO DAILY 06/15/23 Celecoxib [Celebrex] 200 mg PO BID 06/15/23 Magnesium Oxide [Mag 0X Tab] 400 mg PO DAILY 06/15/23 Metoprolol Succinate [Toprol Xl] 25 mg PO DAILY 06/15/23 Trazodone [Desyrel] 50 mg PO BEDTIME 06/15/23 - Past Medical/Surgical History -: hypertension -: afib -: sleep apnea -: - Family History Mother Notes: none Father Notes: prostate problems - Social History Alcohol use: No CD- Drugs: No Caffeine use: Yes Place of Residence: Home Review of Systems 10-point ROS is otherwise unremarkable Physical Examination Temp Pulse Resp BP Pulse Ox 98.1 F 78 17 118/79 98 08/02/23 10:39 08/02/23 10:39 08/02/23 10:39 08/02/23 10:39 08/02/23 10:39 General: Alert, Oriented x3 HEENT: Atraumatic Neck: Supple Respiratory: Clear to auscultation bilaterally Cardiovascular: No edema, Irregular heart rate/rhythm Gastrointestinal: Normal bowel sounds - Problems (1) Atrial fibrillation Current Visit: Yes Status: Acute Plan: Patient is rate controlled atrial fib started on Sotalol 80 mg po BID (2 doses so far) Continue Xarelto 20 mg daily NPO after midnight for SHAYY guided DCCV if still in AF overnight. (2) HTN (hypertension) Current Visit: Yes Status: Acute Plan: Continue HCTZ 12.5 mg daily (3) Obesity Current Visit: Yes Status: Acute Plan: patient might have sleep apnea that contributing to her AF, outpatient sleep study.
[2023-08-02] MEDS ORDERED: INFLUENZA VACCINE (for 6+ mo) 0.5 ML DOSE IMVAC ONE (15:00)
[2023-08-02] MEDS: ACETAMINOPHEN 500 MG TAB PO PRN (15:27)
[2023-08-03 04:26] LABS: Absolute Basophils 0.1 K/uL (0-0.5); Absolute Eosinophils 0.1 K/uL (0-0.5); Absolute Lymphocytes (CBC) 1.8 K/uL (0.7-4.9); Absolute Monocytes 0.5 K/uL (0.1-1.3); Absolute Neutrophil 3.6 K/uL (1.8-8.0); Hematocrit 35.8 % (36.0-45.0); Hemoglobin 12.2 g/dL (12.0-15.0); Lymphocytes % 29.6 % (15.3-44.8); MCH 29.2 pg (27.0-35.0); MCHC 33.9 g/dL (32.0-36.0); Monocytes % 8.8 % (3.3-12.3); Neutrophils % 58.6 % (41.7-73.7); Nucleated Red Blood Cells % 0.4 % (0-0); Platelets 228 thou/uL (152-406); RBC Red Blood Cell Count 4.17 M/uL (3.86-4.86); Red Cell Distribution Width 13.7 % (12.1-15.2)
[2023-08-03 04:59] LABS: Albumin 2.8 g/dL (3.4-5.0); Albumin/Globulin Ratio 0.9 (1.1-1.8); Anion Gap 6.8 mEq/L (5.0-15.0); Bilirubin Total 0.3 mg/dL (0.2-1.0); Magnesium 2.1 mg/dL (1.6-2.4); Potassium 3.8 mEq/L (3.5-5.1); Protein, Total 5.8 g/dL (6.4-8.2)
[2023-08-03] MEDS: NA CHLORIDE 0.9% 500 ML ONE (10:32)
[2023-08-03] MEDS ORDERED: LIDOCAINE 1% MPF 5 ML VIAL ONE (11:01)
[2023-08-03] MEDS ORDERED: propofoL 200 MG/20 ML VIAL IV ONE (11:02)
--- NOTE | 2023-08-03 11:29 | P.PN ---
Subjective Date of Service: 08/03/23 Chief Complaint: Atrial fibrillation Subjective: No new changes Review of Systems 10-point ROS is otherwise unremarkable Physical Examination - Vital Signs Temperature: 97.5 F Blood Pressure: 119/84 Pulse: 71 Respirations: 17 Pulse Ox (%): 96 - Physical Exam General: Alert, Oriented x3 HEENT: Atraumatic Neck: Supple Respiratory: Clear to auscultation bilaterally Cardiovascular: No edema, Normal S1 S2 Gastrointestinal: Normal bowel sounds Assessment And Plan - Current Problems (Diagnosis) (1) Atrial fibrillation Current Visit: Yes Status: Acute Plan: Patient is s/p SHAYY DCCV Continue Sotalol 80 mg po BID Continue Xarelto 20 mg daily. (2) HTN (hypertension) Current Visit: Yes Status: Acute Plan: Continue HCTZ 12.5 mg daily (3) Obesity Current Visit: Yes Status: Acute Plan: patient might have sleep apnea that contributing to her AF, outpatient sleep study.
[2023-08-03] MEDS: POTASSIUM CL SA 10 MEQ TAB PO ONE (11:58)
--- NOTE | 2023-08-03 12:26 | P.PN ---
Subjective Date of Service: 08/03/23 Chief Complaint: Atrial fibrillation feeling better but did feel some "fluttering" overnight. Review of Systems 10-point ROS is otherwise unremarkable Cardiovascular: As per HPI Physical Examination - Vital Signs Temperature: 97.5 F Blood Pressure: 117/72 Pulse: 72 Respirations: 16 Pulse Ox (%): 96 - Physical Exam General: Alert, In no apparent distress, Oriented x3 HEENT: Atraumatic, Normocephalic, PERRLA Neck: Supple Cardiovascular: Normal pulses, Irregular heart rate/rhythm Capillary refill: <2 Seconds Gastrointestinal: Hypoactive Musculoskeletal: No clubbing, No swelling Integumentary: No rashes Neurological: Normal speech, Normal tone Lymphatics: No axilla or inguinal lymphadenopathy External genitalia: Deferred Rectal: Deferred Assessment And Plan - Plan - Plan A. fib: Will continue telemetry, sotalol, xarelto. Cardiology completed SAHYY cardioversion this am. Hx of gall bladder dz: Pt is waiting for the A. fib to resolve before doing lap chol. Elevated BNP: BNP is 1104. She is morbidly obese. Anxiety/Depression: prn ativan Obesity; Pt was advised to lose weight. Htn: Continue sotalol. Code: full Dispo: Pending hospital course Discharge Plan: Home Plan to discharge in: 24 Hours
--- NOTE | 2023-08-03 12:48 | TEE ---
TRANSESOPHAGEAL ECHOCARDIOGRAM REPORT CARDIOLOGY DEPARTMENT DATE OF STUDY: 08/03/2023 HEIGHT: 5'5" WEIGHT: 309 lbs DIAGNOSIS: ATRIAL FIBRILLATION MANAGER OUTREACH COMMENTS: SHAYY CARDIAC HISTORY: CATHERIZATION: SURGERY: PROSTHETIC VALVE: PACEMAKER: 2 DIMENSIONAL ASSESSMENT: RIGHT ATRIUM: NORMAL LEFT ATRIUM: MILD DILATED RIGHT VENTRICLE: NORMAL LEFT VENTRICLE: NORMAL TRICUSPID VALVE: MILD TRICUSPID REGURGITATION MITRAL VALVE: MILD MITRAL REGURGITATION PULMONIC VALVE: NORMAL AORTIC VALVE: NORMAL PERICARDIAL EFFUSION: NONE AORTIC ROOT: NORMAL EJECTION FRACTION: LEFT VENTRICULAR WALL MOTION: NORMAL DOPPLER/COLOR FLOW: COMMENTS: 1. NORMAL LEFT ATRIAL APPENDAGE, NO THROMBUS SEEN. 2. MILD MITRAL REGURGITATION, MILD TRICUSPID REGURGITATION TECHNOLOGIST: SAGE SCHNEIDER
--- NOTE | 2023-08-03 14:21 | EKG ---
Test Date: 2023-08-01 Test Time: 11:23:00 Skatesman: HB MEASUREMENT RESULTS: Intervals: Rate: 81 [place]: QRSD: 84 QT: 350 QTc: 406 [place]: P: CA: QRS: 19 T: -73 INTERPRETIVE STATEMENTS: Atrial fibrillation Nonspecific ST and T wave abnormality, probably digitalis effect Abnormal ECG Compared to ECG 06/15/2023 11:24:42 ST (T wave) deviation now present Myocardial infarct finding no longer present Electronically Signed On 08-03-23 14:15:11 CDT by Samir Herrera
--- NOTE | 2023-08-03 21:12 | OP ---
Date of Procedure: 08/03/2023 Surgeon: Francisco Kirkpatrick Indication For Procedure: Atrial fibrillation. Procedure Performed: Transesophageal echocardiogram-guided cardioversion. Complications: None. Bleeding: None. Anesthesia: Done by Anesthesia team. Description Of Procedure: After risks, benefits, and alternatives were explained to the patient, the patient agreed to the procedure and signed informed consents. The patient was brought to the cysto room in the OR. Time-out was performed. Anesthesia team administered sedation. After the patient w as completely sedated, we inserted the SHAYY probe without any difficulty. Multiple images were obtain ed. Once we found out there was no left atrial appendage thrombus, the SHAYY probe was removed, sedati on was confirmed, and 200 joules of energy was delivered through a synchronized cardioversion. The p atient did not respond to the first shock, so another synchronized cardioversion was done with 250 aida ules of energy, and the patient was converted from AFib into sinus rhythm with no complications. The patient was transferred to recovery without any complications. Repeated EKG confirmed that the negrito ent is in sinus rhythm. Assessment And Plan: Atrial fibrillation, status post successful transesophageal echocardiogram-guid ed cardioversion. Plan will be to: 1.Continue sotalol 80 mg b.i.d. 2.Continue Xarelto 20 mg daily. 3.Return to clinic for a followup. MEKHI Voice ID: [id number] Report ID: [id number]
[2023-08-04 03:52] LABS: Absolute Basophils 0.1 K/uL (0-0.5); Absolute Eosinophils 0.1 K/uL (0-0.5); Absolute Lymphocytes (CBC) 1.5 K/uL (0.7-4.9); Absolute Monocytes 0.4 K/uL (0.1-1.3); Absolute Neutrophil 3.7 K/uL (1.8-8.0); Eosinophils % 1.7 % (0-4.4); Hematocrit 34.8 % (36.0-45.0); Lymphocytes % 26.4 % (15.3-44.8); MCH 29.4 pg (27.0-35.0); MCHC 34.4 g/dL (32.0-36.0); MCV 85.4 fL (80-100); MPV 7.8 fL (7.6-11.3); Monocytes % 7.2 % (3.3-12.3); Neutrophils % 63.7 % (41.7-73.7); Nucleated Red Blood Cells % 0.1 % (0-0); Platelets 231 thou/uL (152-406); RBC Red Blood Cell Count 4.07 M/uL (3.86-4.86); Red Cell Distribution Width 13.7 % (12.1-15.2)
[2023-08-04 04:47] LABS: Anion Gap 5.9 mEq/L (5.0-15.0); Potassium 3.9 mEq/L (3.5-5.1)
--- NOTE | 2023-08-04 05:57 | P.DS ---
Admission Date: 08/01/23 Discharge Date: 08/04/23 Reason for Admission: Atrial fibrillation Consultations: Dr. Kirkpatrick Procedures: SHAYY with DCCV - Problems (1) Atrial fibrillation Current Visit: Yes Status: Acute Qualifiers: Atrial fibrillation type: unspecified Qualified Code(s): I48.91 - Unspecified atrial fibrillation (2) HTN (hypertension) Current Visit: Yes Status: Acute Qualifiers: Hypertension type: primary hypertension Qualified Code(s): I10 - Essential (primary) hypertension (3) UTI (urinary tract infection) Current Visit: Yes Status: Acute Qualifiers: Hematuria presence: with hematuria Brief History of Present Illness: 58-year-old female with a past medical history of atrial fibrillation presents to the emergency room with irregular heart rate. Reports associated anxiety with palpitations. Patient seen by Dr. Tran for cardiology. No reported chest pain, shortness of breath, edema. Plan to admit for A-fib RVR with cardiology to consult. BP 134 / 90; Pulse 88; Resp 21; Temp 98.2(O); Pulse Ox 99% on R/A; Weight 136.08 kg; Height 5 ft. 5 in. ; Pain 0/10; EKG s 81 beats/min. Rhythm is irregularly irregular. QRS [place] is Normal. [place] interval is normal. QRS interval is normal. QT interval is normal. No Q waves. T waves Normal. No ST changes noted. Clinical impression: Atrial Fibrillation Hospital Course: Mr. Hines was loaded on sotalol 80 mg twice daily, after the third dose she remained in A-fib, however it was rate controlled. She was taken for a transesophageal echocardiogram with direct-current cardioversion successfully. Dr. Kirkpatrick requests she remain on Sotalol 80 mg p.o. twice daily and also Xarelto 20 mg p.o. daily. Vital signs are stable, she is anxious to go home. She will be asked to follow-up with cardiology in 1 to 2 weeks and also pulmonology for possible sleep study. <Nila Malcolm - Last Filed: 08/04/23 07:14> Admission Date: 08/01/23 Discharge Date: 08/04/23 Hospital Course: Pt seen and examined. I agree with the note by the COREMAKER. Pt had SHAYY cardioversion on 08/03/23. Will continue sotalol 80mg po BID and Xarelto 20mg po daily. Continue other home meds. Ok to discharge pt. <Atiya Cortes Elidia - Last Filed: 08/04/23 12:06> Disposition: ROUTINE DISCHARGE Discharge Condition: GOOD Vital Signs/Physical Exam: Temp Pulse Resp BP Pulse Ox 97.6 F 78 15 108/68 96 08/04/23 04:00 08/04/23 04:00 08/04/23 04:00 08/04/23 04:00 08/04/23 04:00 General: Alert, In no apparent distress, Oriented x3 HEENT: Atraumatic, Normocephalic Neck: Supple, 2+ carotid pulse no bruit Respiratory: Clear to auscultation bilaterally Cardiovascular: No edema, Normal pulses, Regular rate/rhythm, Normal S1 S2 Gastrointestinal: Soft and benign Musculoskeletal: No swelling Integumentary: No breakdown Neurological: Normal speech, Normal tone Lymphatics: No axilla or inguinal lymphadenopathy External genitalia: Deferred Rectal: Deferred Laboratory Data at Discharge: WBC 5.80 thou/uL (4.3-10.9) 08/04/23 03:23 Hgb 12.0 g/dL (12.0-15.0) 08/04/23 03:23 Hct 34.8 % (36.0-45.0) L 08/04/23 03:23 Plt Count 231 thou/uL (152-406) 08/04/23 03:23 PT 19.5 SECONDS (9.5-12.5) H 08/01/23 12:38 INR 1.80 08/01/23 12:38 Sodium 141 mEq/L (136-145) 08/04/23 03:23 Potassium 3.9 mEq/L (3.5-5.1) 08/04/23 03:23 BUN 11 mg/dL (7-18) 08/04/23 03:23 Creatinine 0.74 mg/dL (0.55-1.02) 08/04/23 03:23 Glucose 92 mg/dL (74-106) 08/04/23 03:23 Magnesium 2.1 mg/dL (1.6-2.4) 08/03/23 03:12 Total Bilirubin 0.3 mg/dL (0.2-1.0) 08/03/23 03:12 AST 10 U/L (15-37) L 08/03/23 03:12 ALT 12 U/L (13-56) L 08/03/23 03:12 Alkaline Phosphatase 99 U/L (45-117) 08/03/23 03:12 <Nila Malcolm Toni - Last Filed: 08/04/23 07:14> Vital Signs/Physical Exam: Temp Pulse Resp BP Pulse Ox 98.4 F 75 18 126/75 97 08/04/23 08:00 08/04/23 08:00 08/04/23 08:00 08/04/23 08:00 08/04/23 08:00 Laboratory Data at Discharge: WBC 5.80 thou/uL (4.3-10.9) 08/04/23 03:23 Hgb 12.0 g/dL (12.0-15.0) 08/04/23 03:23 Hct 34.8 % (36.0-45.0) L 08/04/23 03:23 Plt Count 231 thou/uL (152-406) 08/04/23 03:23 PT 19.5 SECONDS (9.5-12.5) H 08/01/23 12:38 INR 1.80 08/01/23 12:38 Sodium 141 mEq/L (136-145) 08/04/23 03:23 Potassium 3.9 mEq/L (3.5-5.1) 08/04/23 03:23 BUN 11 mg/dL (7-18) 08/04/23 03:23 Creatinine 0.74 mg/dL (0.55-1.02) 08/04/23 03:23 Glucose 92 mg/dL (74-106) 08/04/23 03:23 Magnesium 2.1 mg/dL (1.6-2.4) 08/03/23 03:12 Total Bilirubin 0.3 mg/dL (0.2-1.0) 08/03/23 03:12 AST 10 U/L (15-37) L 08/03/23 03:12 ALT 12 U/L (13-56) L 08/03/23 03:12 Alkaline Phosphatase 99 U/L (45-117) 08/03/23 03:12 <Atiya Cortes - Last Filed: 08/04/23 12:06> Diet: AHA Activity: Ad tomas <Nila Malcolm - Last Filed: 08/04/23 07:14> <Atiya Cortes - Last Filed: 08/04/23 12:06> Home Medications: Semaglutide [Wegovy] 1.7 mg SQ SEECOM 04/29/23 Magnesium Oxide [Mag 0X*] 400 mg PO DAILY 06/15/23 Amox/Clavulanate [Augmentin 875-125 Tab] 1 each PO BID #20 tab 08/04/23 Rivaroxaban [Xarelto*] 20 mg PO DAILY AT SUPPER #60 tab 08/04/23 Sotalol HCl [Betapace*] 80 mg PO BID 6AM 6PM #180 tab 08/04/23 hydroCHLOROthiazide [Hydrochlorothiazide*] 12.5 mg PO DAILY #60 cap 08/04/23 New Medications: Amox/Clavulanate [Augmentin 875-125 Tab] 1 each PO BID #20 tab Sotalol HCl [Betapace*] 80 mg PO BID 6AM 6PM #180 tab hydroCHLOROthiazide [Hydrochlorothiazide*] 12.5 mg PO DAILY #60 cap Rivaroxaban [Xarelto*] 20 mg PO DAILY AT SUPPER #60 tab Physician Discharge Instructions: Okay to DC IV and DC home Follow-up with primary care provider in 1 to 2 weeks, consider sleep study as it may contribute to atrial fibrillation Follow-up with cardiology in 1 to 2-week Please call the inpatient unit for any questions or concerns regarding hospital stay Return to the ER for worsening symptoms New Medications status post SHAYY with DCCV: Sotalol 80mg po BID Xarelto 20mg po daily Sotalol interacts with many other drugs, always clear medications with Dr. Lantigua prior to taking them. Continue: HCTZ 12.5 mg po daily Followup: Korey Lantigua DO [Primary Care Provider] - 1-2 Weeks Samir Herrera MD [ACTIVE - CAN ADMIT] - 1-2 Weeks
[2023-08-04] MEDS: POTASSIUM CL SA 10 MEQ TAB PO ONE (07:54)
[2023-08-04] MEDS: CEFTRIAXONE 1,000 MG in NA CHLORIDE 0.9% 50 ML IVPB ONE (07:54)
[2023-08-04 12:33] VITALS: BP 119/77; TEMP 97.5
[2023-08-04 16:24] VITALS: O2SAT 100
--- NOTE | 2023-08-04 16:25 | P.PN ---
Subjective Date of Service: 08/04/23 Chief Complaint: Atrial fibrillation Subjective: No new changes Review of Systems 10-point ROS is otherwise unremarkable Physical Examination - Vital Signs Temperature: 97.5 F Blood Pressure: 119/77 Pulse: 67 Respirations: 17 Pulse Ox (%): 100 - Physical Exam General: Alert, Oriented x3 HEENT: Atraumatic Neck: Supple Respiratory: Clear to auscultation bilaterally Cardiovascular: No edema, Regular rate/rhythm, Normal S1 S2 Gastrointestinal: Normal bowel sounds Assessment And Plan - Current Problems (Diagnosis) (1) Atrial fibrillation Current Visit: Yes Status: Acute Plan: Patient is s/p SHAYY DCCV Continue Sotalol 80 mg po BID Continue Xarelto 20 mg daily. Qualifiers: Atrial fibrillation type: unspecified Qualified Code(s): I48.91 - Unspecified atrial fibrillation (2) HTN (hypertension) Current Visit: Yes Status: Acute Plan: Continue HCTZ 12.5 mg daily Qualifiers: Hypertension type: primary hypertension Qualified Code(s): I10 - Essential (primary) hypertension (3) Obesity Current Visit: Yes Status: Acute Plan: patient might have sleep apnea that contributing to her AF, outpatient sleep study.
--- NOTE | 2023-08-04 17:05 | EKG ---
Test Date: 2023-08-03 Test Time: 08:18:40 Reel Fed Printer: FLORENCE MEASUREMENT RESULTS: Intervals: Rate: 74 MT: QRSD: 84 QT: 404 QTc: 448 [place]: P: MT: QRS: 20 T: 38 INTERPRETIVE STATEMENTS: Atrial fibrillation Low voltage QRS Cannot rule out Anterior infarct, age undetermined Abnormal ECG Compared to ECG 08/01/2023 11:23:00 Low QRS voltage now present Myocardial infarct finding now present ST (T wave) deviation no longer present Electronically Signed On 08-04-23 17:01:41 CDT by Samir Herrera
--- NOTE | 2023-08-04 17:05 | EKG ---
Test Date: 2023-08-03 Test Time: 11:13:12 Civil Design Technician: FLORENCE MEASUREMENT RESULTS: Intervals: Rate: 75 [place]: 214 QRSD: 90 QT: 410 QTc: 457 [place]: P: 71 [place]: 214 QRS: 71 T: 71 INTERPRETIVE STATEMENTS: Sinus rhythm with 1st degree AV block with premature atrial complexes Otherwise normal ECG Compared to ECG 08/01/2023 11:23:00 Atrial premature complex(es) now present First degree AV block now present Atrial fibrillation no longer present ST (T wave) deviation no longer present Electronically Signed On 08-04-23 17:01:28 CDT by Samir Herrera
== END 2023-08-04 16:46 | disposition home or self-care (01) | DRG 309 ==
LOC: ER 12:14 → ERHOLD 14:08 → 2ND 14:29
PROVIDERS: ADMIT Hospitalist; ATTEND Hospitalist
PROC: B24BZZ4 Ultrasonography of Heart with Aorta, Transesophageal (ICD-10-PCS; principal; 2023-08-03)
PROC: 5A2204Z Restoration of Cardiac Rhythm, Single (ICD-10-PCS; 2023-08-03)
DX: I48.19 Other persistent atrial fibrillation (principal); K80.10 Calculus of gallbladder with chronic cholecystitis without obstruction; Z68.43 Body mass index [BMI] 50.0-59.9, adult; N39.0 Urinary tract infection, site not specified; E66.01 Morbid (severe) obesity due to excess calories; I48.92 Unspecified atrial flutter; I10 Essential (primary) hypertension; F41.9 Anxiety disorder, unspecified; F32.A Depression, unspecified; R31.9 Hematuria, unspecified; Z79.82 Long term (current) use of aspirin; Z79.01 Long term (current) use of anticoagulants; Z79.899 Other long term (current) drug therapy
CPT/HCPCS: 36415; 71045; 80048; 80053; 80076; 81001; 82947; 83735; 83880; 84443; 84484; 85025; 85610; 87077; 87086; 87088; 87186; 92960; 93005; 93312; 94760; 96365; 99285; J0696; J1815; J2001; J2704; J3475; J7030; J7040